=== PATIENT | male | born 2000 | race Caucasian/White ===

== ENCOUNTER 2022-06-26 11:55 | Emergency (ER) | payer OTHER ==
[2022-06-26] MEDS ORDERED: ACETAMINOPHEN 1000 MG/100 ML BAG IVPB ONE (12:19)
[2022-06-26] MEDS ORDERED: MAG HYDROX/AL HYDROX/SIMETH 30 ML UNIT-DOSE CUP PO ONE (12:19)
[2022-06-26] MEDS ORDERED: FAMOTIDINE 20 MG/50 ML IVPB 20 MG/50 ML MG IVPB ONE ×2 (12:19→12:53)
[2022-06-26] MEDS ORDERED: SODIUM CHLORIDE 0.9% 500 ML INFUS.BAG IV ONE (12:19)
[2022-06-26] MEDS ORDERED: ONDANSETRON 4 MG/2 ML VIAL IVPUSH ONE (12:23)
[2022-06-26 12:25] VITALS: BP 120/70; PULSE 67; RESP 18; TEMP 98.7; BMI 20.5
[2022-06-26] MEDS ORDERED: MAG HYDROX/AL HYDROX/SIMETH 30 ML UNIT-DOSE CUP ONE (12:53)
[2022-06-26] MEDS ORDERED: ACETAMINOPHEN INJECTION 100 ML IVPB ONE (12:53)
[2022-06-26] MEDS ORDERED: ONDANSETRON 4 MG/2 ML VIAL ONE (12:53)
[2022-06-26 13:45] LABS: ALBUMIN 4.7 g/dl (3.4-5.0); BILIRUBIN,TOTAL 1.2 mg/dl (0.2-1); CALCIUM 9.5 mg/dl (8.5-10); CREATININE 0.6 mg/dl (0.55-1.3)
[2022-06-26 13:48] LABS: HEMATOCRIT 49.7 % (35.4-49); HEMOGLOBIN 17.2 G/dL (11.7-16.9); MCH 30.2 pg (25.7-33.7); MCHC 34.5 g/dl (32.0-35.9); MEAN CELL VOLUME 87.7 fl (80-96); MEAN PLT VOLUME 9.1 fl (7.5-11.1); PLATELET COUNT 181.9 10^3/uL (134-434); RBC 5.67 10^6/uL (4.00-5.60); RDW 13.4 % (11.9-15.9); WHITE BLOOD COUNT 11.3 10^3/uL (4.0-10.8)
[2022-06-26 14:02] LABS: PLATELET ESTIMATE ADEQUATE
== END 2022-06-26 14:09 | disposition home or self-care (01) ==
LOC: FER 11:55
PROC: 3E033GC Introduction of Other Therapeutic Substance into Peripheral Vein, Percutaneous Approach (ICD-10-PCS; principal; 2022-06-26)
DX: R10.13 Epigastric pain (principal)
CPT/HCPCS: 36415; 80053; 83690; 85027; 99284-25